=== PATIENT | female | born 1985 | race Caucasian/White ===

== ENCOUNTER 2016-09-26 13:12 | Observation (INO) | payer BC ==
[2016-09-26] MEDS ORDERED: Diltiazem IV* 5 MG/ML 5 ML VIAL (for loading dose/IV Push) (25 MG) IV PUSH ONE (13:34)
[2016-09-26] MEDS ORDERED: NS 0.9% 1000 ML* 1,000 ML IV ONE (13:34)
[2016-09-26 13:48] LABS: Hematocrit 41 % (35-47); Mean Corpuscular HGB Conc 34 g/dl (31-36); Mean Corpuscular Hemoglobin 30 pg (27-31); Mean Corpuscular Volume 89 fL (80-97); Mean Platelet Volume 8 um3 (7.4-10.4); Red Blood Count 4.63 10^6/ul (4.0-5.4); Red Cell Distribution Width 14 % (10.5-15); White Blood Count 7.9 10^3/ul (3.5-10.8)
--- NOTE | 2016-09-26 13:53 | RAD ---
HISTORY: Palpitation COMPARISONS: None VIEWS:1: Single frontal portable view of the chest at 1:43 PM FINDINGS: LINES AND TUBES: None. CARDIOMEDIASTINAL SILHOUETTE: The cardiomediastinal silhouette is normal for portable technique. PLEURA: The costophrenic angles are sharp. No pleural abnormalities are noted. LUNG PARENCHYMA: The lungs are clear. ABDOMEN: The upper abdomen is clear. There is no subphrenic gas. BONES AND SOFT TISSUES: No bone or soft tissue abnormalities are noted. IMPRESSION: NO ACTIVE CARDIOPULMONARY DISEASE.
[2016-09-26 14:02] LABS: Albumin 4.5 g/dL (3.2-5.2); BUN/Creatinine Ratio 12.7 (8-20); Calcium 9.8 mg/dL (8.6-10.3); EGFR African American 75.5 (>60); EGFR Non-African American 58.7 (>60); Potassium 3.5 mmol/L (3.5-5.0); Total Bilirubin 0.8 mg/dL (0.2-1.0); Total Protein 7.5 g/dL (6.4-8.9)
[2016-09-26 14:44] LABS: TSH (Thyroid Stimulating Horm) 1.34 mcIU/mL (0.34-5.60)
[2016-09-26 15:46] LABS: Urine Bacteria Absent (Absent); Urine Bilirubin Negative (Negative); Urine Glucose Negative (Negative); Urine Nitrite Negative (Negative)
[2016-09-26] MEDS ORDERED: Diltiazem IV* 5 MG/ML 5 ML VIAL (for loading dose/IV Push) (25 MG) IV SLOW PU ONE (15:49)
[2016-09-26] MEDS ORDERED: Diltiazem TAB* 60 MG PO SCH (15:50)
[2016-09-26] MEDS ORDERED: Potassium Chloride LIQUID* 20 MEQ PACKET PO ONE (15:53)
[2016-09-26] MEDS ORDERED: Acetaminophen TAB* 325 MG PO PRN (15:53)
[2016-09-26] MEDS ORDERED: Ondansetron INJ* 2 MG/ML VIAL IV PRN (15:53)
[2016-09-26] MEDS ORDERED: Diltiazem DRIP* 100 MG/100 ML ADDV.BAG IVPB ONE (15:59)
[2016-09-26] MEDS ORDERED: NS 0.9% 1000 ML* 1,000 ML IV SCH (16:00)
[2016-09-26] MEDS: Rivaroxaban TAB(*) 20 MG TAB PO SCH (16:26)
--- NOTE | 2016-09-26 16:27 | ED ---
Sharad Gasca Billy, scribed for Jose A Moeller MD on 09/26/16 at 1330 . Palpitations / Dysrhythmia - HPI Summary HPI Summary: Patient is a 30 year-old female coming to [facility] for evaluation of intermittent palpitations since this morning at 0500. She has a history of palpitations and had been seen by cardiology in the past but was never formally diagnosed with any disorder. She describes irregular fluttering which she can feel in her throat, as well as dizziness and shortness of breath. Nothing makes her symptoms better or worse. Denies control pill use. Denies calf pain or swelling. She takes magnesium for her migraine headaches. - History of Current Complaint Chief Complaint: EDDysrhythmPalp Time Seen by Provider: 09/26/16 13:22 Hx Obtained From: Patient Onset/Duration: Gradual Onset Timing: Intermittent Episodes Lasting: Severity Initially: Moderate Severity Currently: Moderate Character: Irregular, Fluttering Aggravating: Nothing Alleviating: Nothing Associated Signs & Symptoms: Dizzy, Shortness of Breath - Allergy/Home Medications Allergies/Adverse Reactions: Allergies Allergy/AdvReac Type Severity Reaction Status Date / Time No Known Allergies Allergy Verified 09/26/16 13:16 PMH/Surg Hx/FS Hx/Imm Hx Endocrine/Hematology History: Denies: Hx Diabetes Cardiovascular History: Denies: Hx Hypertension, Hx Pacemaker/ICD Respiratory History: Denies: Hx Asthma History: Denies: Hx Renal Disease Sensory History: Denies: Hx Hearing Aid Neurological History: Reports: Hx Headaches, Hx Migraine Psychiatric History: Reports: Hx Anxiety, Hx Panic Disorder - Surgical History Surgery Procedure, Year, and Place: X2;. TUBAL LIGATION;. LEFT LEG VEIN CLOSURE; Infectious Disease History: No Infectious Disease History: Denies: Traveled Outside the [place] in Last 30 Days - Family History Known Family History: Positive: Hypertension, Diabetes - Social History Alcohol Use: Daily Alcohol Amount: wine almost daily Substance Use Type: Reports: None Smoking Status (MU): Former Smoker Review of Systems Positive: Palpitations Positive: Shortness Of Breath Negative: Myalgia, Edema Neurological: Other - dizziness All Other Systems Reviewed And Are Negative: Yes Physical Exam - Summary Physical Exam Summary: VITAL SIGNS: Reviewed. GENERAL: Patient is a well-developed, overweight, and nourished female who is lying comfortable in the stretcher. Patient is not in any acute respiratory distress. HEAD AND FACE: No signs of trauma. No ecchymosis, hematomas or skull depressions. No sinus tenderness. EYES: PERRLA, EOMI x 2, No injected conjunctiva, no nystagmus. EARS: Hearing grossly intact. Ear canals and tympanic membranes are within normal limits. MOUTH: Oropharynx within normal limits. NECK: Supple, trachea is midline, no adenopathy, no JVD, no carotid bruit, no c- spine tenderness, neck with full ROM. CHEST: Symmetric, no tenderness at palpation LUNGS: Clear to auscultation bilaterally. No wheezing or crackles. CVS: Irregular rate and rhythm, S1 and S2 present, no murmurs or gallops appreciated. ABDOMEN: Soft, non-tender. No signs of distention. No rebound no guarding, and no masses palpated. Bowel sounds are normal. EXTREMITIES: FROM in all major joints, no edema, no cyanosis or clubbing. NEURO: Alert and oriented x 3. No acute neurological deficits. Speech is normal and follows commands. SKIN: Dry and warm Triage Information Reviewed: Yes Vital Signs On Initial Exam: Initial Vitals Temp Pulse Resp BP Pulse Ox 97.8 F 157 18 134/81 100 09/26/16 13:14 09/26/16 13:14 09/26/16 13:14 09/26/16 13:14 09/26/16 13:14 Vital Signs Reviewed: Yes Diagnostics - Vital Signs Vital Signs Temp Pulse Resp BP Pulse Ox 09/26/16 13:14 97.8 F 157 18 134/81 100 - Laboratory Lab Results: Lab Results 09/26/16 09/26/16 09/26/16 Range/Units 13:37 13:37 13:37 WBC 7.9 (3.5-10.8) 10^3/ul RBC 4.63 (4.0-5.4) 10^6/ul Hgb 14.0 (12.0-16.0) g/dl Hct 41 (35-47) % MCV 89 (80-97) fL MCH 30 (27-31) pg MCHC 34 (31-36) g/dl RDW 14 (10.5-15) % Plt Count 217 (150-450) 10^3/ul MPV 8 (7.4-10.4) um3 Neut % (Auto) 58.0 (38-83) % Lymph % (Auto) 33.7 (25-47) % [place] % (Auto) 6.6 (1-9) % Eos % (Auto) 0.9 (0-6) % Baso % (Auto) 0.8 (0-2) % Absolute Neuts (auto) 4.6 (1.5-7.7) 10^3/ul Absolute Lymphs (auto) 2.7 (1.0-4.8) 10^3/ul Absolute Monos (auto) 0.5 (0-0.8) 10^3/ul Absolute Eos (auto) 0.1 (0-0.6) 10^3/ul Absolute Basos (auto) 0.1 (0-0.2) 10^3/ul Absolute Nucleated RBC 0 10^3/ul Nucleated RBC % 0 INR (Anticoag Therapy) (0.89-1.11) APTT (26.0-36.3) seconds D-Dimer, Quantitative (Less Than 230) ng/mL Sodium 139 (133-145) mmol/L Potassium 3.5 (3.5-5.0) mmol/L Chloride 107 (101-111) mmol/L Carbon Dioxide 24 (22-32) mmol/L Anion Gap 8 (2-11) mmol/L BUN 14 (6-24) mg/dL Creatinine 1.10 H (0.51-0.95) mg/dL Est GFR ( Amer) 75.5 (>60) Est GFR (Non-Af Amer) 58.7 (>60) BUN/Creatinine Ratio 12.7 (8-20) Glucose 89 (70-100) mg/dL Lactic Acid 0.7 (0.5-2.0) mmol/L Calcium 9.8 (8.6-10.3) mg/dL Magnesium 2.0 (1.9-2.7) mg/dL Total Bilirubin 0.80 (0.2-1.0) mg/dL AST 20 (13-39) U/L ALT 17 (7-52) U/L Alkaline Phosphatase 31 L (34-104) U/L Total Creatine Kinase 161 (10-223) U/L Troponin I 0.00 (<0.04) ng/mL B-Natriuretic Peptide ( - 100) pg/mL Total Protein 7.5 (6.4-8.9) g/dL Albumin 4.5 (3.2-5.2) g/dL Globulin 3.0 (2-4) g/dL Albumin/Globulin Ratio 1.5 (1-3) TSH 1.34 (0.34-5.60) mcIU/mL Urine Color Urine Appearance Urine pH (5-9) Ur Specific [place] (1.010-1.030) Urine Protein (Negative) Urine Ketones (Negative) Urine Blood (Negative) Urine Nitrate (Negative) Urine Bilirubin (Negative) Urine Urobilinogen (Negative) Ur Leukocyte Esterase (Negative) Urine WBC (Auto) (Absent) Urine RBC (Auto) (Absent) Ur Squamous Epith Cells (Absent) Urine Bacteria (Absent) Urine Glucose (Negative) 09/26/16 09/26/16 09/26/16 Range/Units 13:37 13:37 15:25 WBC (3.5-10.8) 10^3/ul RBC (4.0-5.4) 10^6/ul Hgb (12.0-16.0) g/dl Hct (35-47) % MCV (80-97) fL MCH (27-31) pg MCHC (31-36) g/dl RDW (10.5-15) % Plt Count (150-450) 10^3/ul MPV (7.4-10.4) um3 Neut % (Auto) (38-83) % Lymph % (Auto) (25-47) % [place] % (Auto) (1-9) % Eos % (Auto) (0-6) % Baso % (Auto) (0-2) % Absolute Neuts (auto) (1.5-7.7) 10^3/ul Absolute Lymphs (auto) (1.0-4.8) 10^3/ul Absolute Monos (auto) (0-0.8) 10^3/ul Absolute Eos (auto) (0-0.6) 10^3/ul Absolute Basos (auto) (0-0.2) 10^3/ul Absolute Nucleated RBC 10^3/ul Nucleated RBC % INR (Anticoag Therapy) 0.90 (0.89-1.11) APTT 28.4 (26.0-36.3) seconds D-Dimer, Quantitative < 200 (Less Than 230) ng/mL Sodium (133-145) mmol/L Potassium (3.5-5.0) mmol/L Chloride (101-111) mmol/L Carbon Dioxide (22-32) mmol/L Anion Gap (2-11) mmol/L BUN (6-24) mg/dL Creatinine (0.51-0.95) mg/dL Est GFR ( Amer) (>60) Est GFR (Non-Af Amer) (>60) BUN/Creatinine Ratio (8-20) Glucose (70-100) mg/dL Lactic Acid (0.5-2.0) mmol/L Calcium (8.6-10.3) mg/dL Magnesium (1.9-2.7) mg/dL Total Bilirubin (0.2-1.0) mg/dL AST (13-39) U/L ALT (7-52) U/L Alkaline Phosphatase (34-104) U/L Total Creatine Kinase (10-223) U/L Troponin I (<0.04) ng/mL B-Natriuretic Peptide 133 H ( - 100) pg/mL Total Protein (6.4-8.9) g/dL Albumin (3.2-5.2) g/dL Globulin (2-4) g/dL Albumin/Globulin Ratio (1-3) TSH (0.34-5.60) mcIU/mL Urine Color Colorless Urine Appearance Clear Urine pH 7.0 (5-9) Ur Specific [place] 1.002 L (1.010-1.030) Urine Protein Negative (Negative) Urine Ketones Trace H (Negative) Urine Blood 2+ H (Negative) Urine Nitrate Negative (Negative) Urine Bilirubin Negative (Negative) Urine Urobilinogen Negative (Negative) Ur Leukocyte Esterase Negative (Negative) Urine WBC (Auto) Absent (Absent) Urine RBC (Auto) Trace(0-2/hpf) (Absent) Ur Squamous Epith Cells Present H (Absent) Urine Bacteria Absent (Absent) Urine Glucose Negative (Negative) Result Diagrams: 09/26/16 13:37 09/26/16 13:37 Lab Statement: Any lab studies that have been ordered have been reviewed, and results considered in the medical decision making process. - Radiology CXR Xray Interpretation: No Acute Changes Radiology Interpretation Completed By: Radiologist - EKG 1324 EKG Interpretation: afib 162 bpm with RVR Course/Dx - Course Assessment/Plan: Patient is a 30 year-old female coming to [facility] for evaluation of intermittent palpitations since this morning at 0500. She has a history of palpitations and had been seen by cardiology in the past but was never formally diagnosed with any disorder. She describes irregular fluttering which she can feel in her throat, as well as dizziness and shortness of breath. Nothing makes her symptoms better or worse. Denies control pill use. Denies calf pain or swelling. She takes magnesium for her migraine headaches. Test results WNL except for creatinine of 1.10 and BNP of 133. In the ED course, the patient was given IV fluids, Cardizem bolus for the atrial fibrillation with RVR. After these medications, the heart rate is better controlled and fluctuates between 90 bpm and 110 bpm. I discussed the case with Dr. Lambert who accepted the patient for admission. The patient is hemodynamically stable, A&Ox3. - Diagnoses Provider Diagnoses: Atrial fibrillation with RVR - Physician Notifications Discussed Care Of Patient With: Dr. Lambert (hospitalist) at 1520: accepts admission. Discharge - Discharge Plan Condition: Stable Disposition: ADMITTED TO [facility] The documentation as recorded by the Sharad westfall Billy accurately reflects the service I personally performed and the decisions made by me, Jose A Moeller MD.
--- NOTE | 2016-09-26 17:17 | HP ---
HISTORY AND PHYSICAL: DATE OF ADMISSION: 09/26/16 PRIMARY CARE PROVIDER: Loni Logan NP. ATTENDING PHYSICIAN WHILE IN THE HOSPITAL: Dr. Jorge Lambert* (report dictated by Joe Bravo NP). CONSULTING SECURITY RESEARCHER: Dr. Saez. CHIEF COMPLAINT: Palpitations. HISTORY OF PRESENT ILLNESS: Ms. Gan is a 30-year-old female patient. She carries really a history of migraines. She comes in to the ER today stating that she woke up at 5 this morning. She was feeling palpitations. She did not feel palpitations yesterday that she can recall. She says she went to bed about 9-9:30 last night, woke up around 5 in the morning, had palpitations. She tried Valsalva maneuver. She has had palpitations in the past. She actually had follow up with her box attacher, Dr. Julio Andre, nothing was ever found. Unfortunately today, she was at [employer] working and she was still having palpitations and fluttering in her chest. She got clammy in her hands. She felt nauseous. She just was not feeling good. So, she went to her co- worker. They checked her heart rate. It was noted on the pulse oximetry that her heart rate was very erratic. She was having palpitations and she was feeling short of breath. She took 2 baby aspirin this afternoon. They just were not going away. This had never occurred or happened before previously. So , she decided to come in to the ER. She came in, was evaluated, found to be in AFib with RVR, and we were asked to evaluate for admission. She denies any recent changes in her medications. She does state that she is a 2-cup-a-day coffee drinker. She does drink wine. She denied having any changes in medication. There has been no calf pain, leg pain, or tenderness or any of that nature and she did admit to having shortness of breath with the palpitations. She came in, was evaluated. Because of the AFib with RVR, we were asked to evaluate for admission. PAST MEDICAL HISTORY: Significant for migraines. PAST SURGICAL HISTORY: 1. She has had tubal ligation. 2. . HOME MEDICATIONS: According to her include: 1. Vitamin B12 one tablet daily. 2. Magnesium 1 tablet daily. 3. Probiotic 1 tablet daily. ALLERGIES TO MEDICATIONS: Include no known drug allergies. FAMILY HISTORY: Mother had a history of hypertension and valvular heart disease. Father had a history of heart disease as well. SOCIAL HISTORY: She is a former smoker. She quit in 2009. Rarely drinks alcohol. 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 Surrogate decision maker is her . REVIEW OF SYSTEMS: There is no documented fever. She denied having any significant weight change. There was no double vision. She denies having any ear discharge. There was no rhinorrhea. No sore throat. No thyroid enlargement. She denied having any chest pain. There was palpitations. There was no shortness of breath. There was no dysuria. No frequency. There was no seizure. No loss of consciousness or pruritus and no skin ulcerations. Review of 14 systems completed, all others negative. PHYSICAL EXAMINATION GENERAL: At this time, Ms. Gan is a 30-year-old female patient. She appear to be well nourished, well developed. She is sitting in the ER stretcher. She does not appear to be in any acute distress. VITAL SIGNS: Blood pressure 138/74, pulse 142, respirations 20, O2 sat 100%, and temperature 97.8. HEENT: Head is atraumatic and normocephalic. Eyes: EOMs are intact. Sclerae anicteric and not pale. Throat: Oral mucosa appears to be moist. No oropharyngeal erythema. NECK: Supple. LUNGS: Clear to auscultation. No wheezes, rales, or rhonchi. HEART: Sounds S1, S2. Irregularly irregular rate. No murmurs, rubs, or gallops. ABDOMEN: Soft, flat, and nontender. Bowel sounds present. EXTREMITIES: Pulses were 2+ throughout. She is able to move all 4 extremities with 5/5 strength. NEUROLOGIC: The patient is awake, alert, and oriented x3. Tongue midline. Foot Doctor are equal. There were no gross focal deficits. SKIN: Grossly intact. LABORATORY DATA AND DIAGNOSTIC STUDIES: Today revealed a WBC of 7.9, RBC of 4.63, hemoglobin 14.0, hematocrit of 41, platelet count 217. The INR was 0.90. PTT of 28.4. D-dimer less than 200. Sodium 139, potassium 3.5, chloride of 107, bicarb 24, BUN 14, creatinine of 1.10, glucose of 89, lactic 0.7, calcium 9.8, mag 2.0. Total bili 0.8, AST 20, ALT 17, alk phos 31, CK 151. Troponin 0. BNP 133. Albumin of 4.5. TSH of 1.34. She did have a chest x-ray obtained today, which revealed no active cardiopulmonary disease. There was an EKG obtained today as well, which showed atrial fibrillation, rate of 162. She did have a PVC, but no ST elevations or T -wave inversions were noted. Old medical records were reviewed. ASSESSMENT AND PLAN: Ms. Gan is a 30-year-old female patient coming in to the ER today with complaints of palpitations, not feeling well, and found to be in atrial fibrillation with rapid ventricular response. She will be admitted under observation status for: 1. Atrial fibrillation with rapid ventricular response: I did touch base with Dr. Saez who will evaluate the patient tomorrow. It seems like that they were within the 48-hour time frame of possible cardioversion. The plan at this point is to go ahead and give her a dose of Xarelto now and then once daily thereafter. I also will give her a repeat bolus of diltiazem, her last bolus was about 1:30 and now she is back into rapid atrial fibrillation. We will give her 15 mg of IV diltiazem and started her on a drip of 5. My plan at this point is to titrate the drip to maximum 20 and titrate for a heart rate around 80 and try to get her potassium up. I am going to give her 40 mEq now and then 20 mg at bedtime and we will check in the morning. She will be n.p.o. after midnight and I will hydrate the patient. 2. Migraines: Tylenol p.r.n. has been made available. 3. Code status: Full code. 4. DVT prophylaxis: She will be placed on Xarelto. TIME SPENT: Time spent on the admission was 60 minutes; greater than half the time was spent [id number] with the patient obtaining my history and physical, other half the time spent going over the plan of care with the patient and implementing plan of care. I did discuss the plan of care with my attending, Dr. Lambert; he is in agreement. JOE BRAVO NP CC: Loni Logan TRAINING ANALYST; Dr. Saez* [id number]/[facility] #: [id number] LELA
[2016-09-26] MEDS ORDERED: Diltiazem DRIP* 100 MG/100 ML ADDV.BAG IVPB SCH (17:25)
[2016-09-26] MEDS ORDERED: Potassium Chlor TAB* 20 MEQ TAB.ER PO SCH (21:00)
[2016-09-27 05:06] LABS: Hematocrit 36 % (35-47); Hemoglobin 12.2 g/dl (12.0-16.0); Mean Corpuscular HGB Conc 34 g/dl (31-36); Mean Corpuscular Hemoglobin 30 pg (27-31); Mean Corpuscular Volume 89 fL (80-97); Mean Platelet Volume 8 um3 (7.4-10.4); Red Blood Count 4.02 10^6/ul (4.0-5.4); Red Cell Distribution Width 14 % (10.5-15); White Blood Count 6.1 10^3/ul (3.5-10.8)
[2016-09-27 05:19] LABS: BUN/Creatinine Ratio 13.3 (8-20); Calcium 8.4 mg/dL (8.6-10.3); EGFR African American 95.2 (>60); Potassium 4.1 mmol/L (3.5-5.0)
--- NOTE | 2016-09-27 07:18 | PN ---
Subjective Date of Service: 09/27/16 Interval History: CC: palpitations Pt is feeling better since converting to NSR around MN last night. She states that the heaviness in her chest immediately dissipated after converting to NSR. She has no further SOB. She however feels very tired and hungry. Family History: Unchanged from Admission Social History: Unchanged from Admission Past Medical History: Unchanged from Admission Objective Active Medications: Acetaminophen (Tylenol Tab*) 650 mg PO Q4H PRN PRN Reason: FEVER/PAIN Last Admin: 09/26/16 19:40 Dose: 650 mg Ondansetron HCl (Zofran Inj*) 4 mg IV Q6H PRN PRN Reason: NAUSEA Rivaroxaban (Xarelto (*)) 20 mg PO DAILY MANOJ Last Admin: 09/26/16 16:26 Dose: 20 mg Vital Signs 09/26/16 09/26/16 09/26/16 16:00 16:08 16:17 Temperature Pulse Rate 61 Respiratory 20 20 18 Rate Blood Pressure 118/69 121/80 117/52 (mmHg) O2 Sat by Pulse 99 Oximetry 09/26/16 09/26/16 09/26/16 16:30 17:00 17:05 Temperature 99.0 F 99.0 F Pulse Rate 99 90 94 Respiratory 15 17 16 Rate Blood Pressure 121/76 108/65 (mmHg) O2 Sat by Pulse 98 98 99 Oximetry 09/26/16 09/26/16 09/26/16 17:30 18:00 18:12 Temperature Pulse Rate 90 87 68 Respiratory 18 18 17 Rate Blood Pressure 114/69 127/73 (mmHg) O2 Sat by Pulse 99 99 97 Oximetry 09/26/16 09/26/16 09/26/16 18:30 19:00 19:14 Temperature Pulse Rate 36 68 93 Respiratory 19 15 17 Rate Blood Pressure 123/73 114/61 104/50 (mmHg) O2 Sat by Pulse 97 98 98 Oximetry 09/26/16 09/26/16 09/26/16 19:16 19:25 19:30 Temperature 99 F Pulse Rate 92 90 Respiratory 19 19 Rate Blood Pressure 107/81 (mmHg) O2 Sat by Pulse 96 98 Oximetry 09/26/16 09/26/16 09/26/16 20:00 20:11 20:13 Temperature Pulse Rate 86 86 80 Respiratory 20 17 17 Rate Blood Pressure 94/58 103/64 (mmHg) O2 Sat by Pulse 97 97 97 Oximetry 09/26/16 09/26/16 09/26/16 20:30 21:00 21:57 Temperature Pulse Rate 86 80 Respiratory 18 17 14 Rate Blood Pressure 108/59 105/61 (mmHg) O2 Sat by Pulse 98 96 Oximetry 09/26/16 09/26/16 09/26/16 22:00 22:15 22:30 Temperature Pulse Rate 81 82 82 Respiratory 16 19 17 Rate Blood Pressure 95/62 89/47 (mmHg) O2 Sat by Pulse 97 96 97 Oximetry 09/26/16 09/26/16 09/26/16 22:34 22:45 22:58 Temperature Pulse Rate 84 76 Respiratory 18 15 20 Rate Blood Pressure 102/60 (mmHg) O2 Sat by Pulse 97 95 Oximetry 09/26/16 09/26/16 09/26/16 23:00 23:01 23:15 Temperature 99.6 F Pulse Rate 74 73 Respiratory 19 13 Rate Blood Pressure 102/54 (mmHg) O2 Sat by Pulse 95 94 Oximetry 09/26/16 09/26/16 09/27/16 23:30 23:45 00:00 Temperature Pulse Rate 65 62 86 Respiratory 8 14 20 Rate Blood Pressure 92/47 (mmHg) O2 Sat by Pulse 95 95 96 Oximetry 09/27/16 09/27/16 09/27/16 00:01 00:13 00:15 Temperature Pulse Rate 87 84 83 Respiratory 24 22 18 Rate Blood Pressure 98/58 (mmHg) O2 Sat by Pulse 96 98 97 Oximetry 09/27/16 09/27/16 09/27/16 00:30 00:45 01:00 Temperature Pulse Rate 87 74 81 Respiratory 23 15 21 Rate Blood Pressure 102/50 99/62 (mmHg) O2 Sat by Pulse 97 96 98 Oximetry 09/27/16 09/27/16 09/27/16 01:15 01:30 01:44 Temperature Pulse Rate 63 62 55 Respiratory 13 13 12 Rate Blood Pressure 103/54 (mmHg) O2 Sat by Pulse 95 95 96 Oximetry 09/27/16 09/27/16 09/27/16 02:00 02:15 02:30 Temperature Pulse Rate 54 56 57 Respiratory 13 16 12 Rate Blood Pressure 102/43 101/46 (mmHg) O2 Sat by Pulse 97 96 96 Oximetry 09/27/16 09/27/1609/27/17 02:45 03:00 03:15 Temperature Pulse Rate 64 76 70 Respiratory 13 14 14 Rate Blood Pressure 94/53 (mmHg) O2 Sat by Pulse 95 96 96 Oximetry 09/27/16 09/27/16 09/27/16 03:30 03:45 04:00 Temperature 98.1 F Pulse Rate 62 62 68 Respiratory 14 13 16 Rate Blood Pressure 94/45 99/45 (mmHg) O2 Sat by Pulse 95 95 97 Oximetry 09/27/16 09/27/16 09/27/16 04:15 04:30 04:42 Temperature Pulse Rate 60 54 Respiratory 13 12 12 Rate Blood Pressure 89/52 (mmHg) O2 Sat by Pulse 96 96 Oximetry 09/27/16 09/27/16 09/27/16 04:45 04:50 05:00 Temperature Pulse Rate 60 58 Respiratory 13 13 20 Rate Blood Pressure 104/55 (mmHg) O2 Sat by Pulse 96 96 Oximetry 09/27/16 09/27/16 09/27/16 05:04 05:15 05:30 Temperature Pulse Rate 73 73 Respiratory 16 16 16 Rate Blood Pressure 108/58 (mmHg) O2 Sat by Pulse 97 97 Oximetry 09/27/16 09/27/16 09/27/16 05:45 06:00 06:15 Temperature Pulse Rate 74 74 79 Respiratory 16 12 19 Rate Blood Pressure 121/71 (mmHg) O2 Sat by Pulse 97 97 98 Oximetry 09/27/16 09/27/16 06:30 06:31 Temperature Pulse Rate 76 Respiratory 13 15 Rate Blood Pressure 120/70 (mmHg) O2 Sat by Pulse 98 Oximetry Oxygen Devices in Use Now: None Appearance: Young obese female sitting up in bed, NAD Eyes: No Scleral Icterus Ears/Nose/Mouth/Throat: Mucous Membranes Moist Respiratory: Symmetrical Chest Expansion and Respiratory Effort, Clear to Auscultation Cardiovascular: NL Sounds; No Murmurs; No JVD, RRR, No Edema Abdominal: NL Sounds; No Tenderness; No Distention Extremities: No Clubbing, Cyanosis Skin: No Rash or Ulcers, No Nodules or Sclerosis Neurological: Alert and Oriented x 3 Result Diagrams: 09/27/16 04:55 09/27/16 04:55 Additional Lab and Data: Lab Results 09/26/16 09/26/16 09/26/16 Range/Units 13:37 13:37 13:37 WBC 7.9 (3.5-10.8) 10^3/ul RBC 4.63 (4.0-5.4) 10^6/ul Hgb 14.0 (12.0-16.0) g/dl Hct 41 (35-47) % MCV 89 (80-97) fL MCH 30 (27-31) pg MCHC 34 (31-36) g/dl RDW 14 (10.5-15) % Plt Count 217 (150-450) 10^3/ul MPV 8 (7.4-10.4) um3 Neut % (Auto) 58.0 (38-83) % Lymph % (Auto) 33.7 (25-47) % Howell % (Auto) 6.6 (1-9) % Eos % (Auto) 0.9 (0-6) % Baso % (Auto) 0.8 (0-2) % Absolute Neuts (auto) 4.6 (1.5-7.7) 10^3/ul Absolute Lymphs (auto) 2.7 (1.0-4.8) 10^3/ul Absolute Monos (auto) 0.5 (0-0.8) 10^3/ul Absolute Eos (auto) 0.1 (0-0.6) 10^3/ul Absolute Basos (auto) 0.1 (0-0.2) 10^3/ul Absolute Nucleated RBC 0 10^3/ul Nucleated RBC % 0 INR (Anticoag Therapy) (0.89-1.11) APTT (26.0-36.3) seconds D-Dimer, Quantitative (Less Than 230) ng/mL Sodium 139 (133-145) mmol/L Potassium 3.5 (3.5-5.0) mmol/L Chloride 107 (101-111) mmol/L Carbon Dioxide 24 (22-32) mmol/L Anion Gap 8 (2-11) mmol/L BUN 14 (6-24) mg/dL Creatinine 1.10 H (0.51-0.95) mg/dL Est GFR ( Amer) 75.5 (>60) Est GFR (Non-Af Amer) 58.7 (>60) BUN/Creatinine Ratio 12.7 (8-20) Glucose 89 (70-100) mg/dL Lactic Acid 0.7 (0.5-2.0) mmol/L Calcium 9.8 (8.6-10.3) mg/dL Magnesium 2.0 (1.9-2.7) mg/dL Total Bilirubin 0.80 (0.2-1.0) mg/dL AST 20 (13-39) U/L ALT 17 (7-52) U/L Alkaline Phosphatase 31 L (34-104) U/L Total Creatine Kinase 161 (10-223) U/L Troponin I 0.00 (<0.04) ng/mL B-Natriuretic Peptide ( - 100) pg/mL Total Protein 7.5 (6.4-8.9) g/dL Albumin 4.5 (3.2-5.2) g/dL Globulin 3.0 (2-4) g/dL Albumin/Globulin Ratio 1.5 (1-3) TSH 1.34 (0.34-5.60) mcIU/mL Urine Color Urine Appearance Urine pH (5-9) Ur Specific Randolph (1.010-1.030) Urine Protein (Negative) Urine Ketones (Negative) Urine Blood (Negative) Urine Nitrate (Negative) Urine Bilirubin (Negative) Urine Urobilinogen (Negative) Ur Leukocyte Esterase (Negative) Urine WBC (Auto) (Absent) Urine RBC (Auto) (Absent) Ur Squamous Epith Cells (Absent) Urine Bacteria (Absent) Urine Glucose (Negative) 09/26/16 09/26/16 09/26/16 Range/Units 13:37 13:37 15:25 WBC (3.5-10.8) 10^3/ul RBC (4.0-5.4) 10^6/ul Hgb (12.0-16.0) g/dl Hct (35-47) % MCV (80-97) fL MCH (27-31) pg MCHC (31-36) g/dl RDW (10.5-15) % Plt Count (150-450) 10^3/ul MPV (7.4-10.4) um3 Neut % (Auto) (38-83) % Lymph % (Auto) (25-47) % Howell % (Auto) (1-9) % Eos % (Auto) (0-6) % Baso % (Auto) (0-2) % Absolute Neuts (auto) (1.5-7.7) 10^3/ul Absolute Lymphs (auto) (1.0-4.8) 10^3/ul Absolute Monos (auto) (0-0.8) 10^3/ul Absolute Eos (auto) (0-0.6) 10^3/ul Absolute Basos (auto) (0-0.2) 10^3/ul Absolute Nucleated RBC 10^3/ul Nucleated RBC % INR (Anticoag Therapy) 0.90 (0.89-1.11) APTT 28.4 (26.0-36.3) seconds D-Dimer, Quantitative < 200 (Less Than 230) ng/mL Sodium (133-145) mmol/L Potassium (3.5-5.0) mmol/L Chloride (101-111) mmol/L Carbon Dioxide (22-32) mmol/L Anion Gap (2-11) mmol/L BUN (6-24) mg/dL Creatinine (0.51-0.95) mg/dL Est GFR ( Amer) (>60) Est GFR (Non-Af Amer) (>60) BUN/Creatinine Ratio (8-20) Glucose (70-100) mg/dL Lactic Acid (0.5-2.0) mmol/L Calcium (8.6-10.3) mg/dL Magnesium (1.9-2.7) mg/dL Total Bilirubin (0.2-1.0) mg/dL AST (13-39) U/L ALT (7-52) U/L Alkaline Phosphatase (34-104) U/L Total Creatine Kinase (10-223) U/L Troponin I (<0.04) ng/mL B-Natriuretic Peptide 133 H ( - 100) pg/mL Total Protein (6.4-8.9) g/dL Albumin (3.2-5.2) g/dL Globulin (2-4) g/dL Albumin/Globulin Ratio (1-3) TSH (0.34-5.60) mcIU/mL Urine Color Colorless Urine Appearance Clear Urine pH 7.0 (5-9) Ur Specific Randolph 1.002 L (1.010-1.030) Urine Protein Negative (Negative) Urine Ketones Trace H (Negative) Urine Blood 2+ H (Negative) Urine Nitrate Negative (Negative) Urine Bilirubin Negative (Negative) Urine Urobilinogen Negative (Negative) Ur Leukocyte Esterase Negative (Negative) Urine WBC (Auto) Absent (Absent) Urine RBC (Auto) Trace(0-2/hpf) (Absent) Ur Squamous Epith Cells Present H (Absent) Urine Bacteria Absent (Absent) Urine Glucose Negative (Negative) Microbiology and Other Data: Microbiology 09/26/16 17:00 Nasal Screen MRSA (PCR)([facility]) - Final Nasal Mrsa Negative Assess/Plan/Problems-Billing Ms Gan is a 30 yo F who has no significant PMHx who presented to the ER with c /o palpitations with associated SOB and chest heaviness and was found to be in rapid afib. - Patient Problems (1) Atrial fibrillation with RVR Current Visit: Yes Status: Acute Code(s): I48.91 - UNSPECIFIED ATRIAL FIBRILLATION SNOMED Code(s): 643984178370961 Comment: The patient converted to NSR around [place] last night on the diltiazem drip. Will stop the drip this AM and monitor for return of afib. Will still plan on getting the echo to evaluate the valve fxn and structure of the heart. Cardiology consult was requested for cardioversion which is not needed now but will see if any further recommendations are made. Will likely stop the xarelto as she converted on her own. Electrolytes are optimized. (2) DVT prophylaxis Current Visit: Yes Status: Acute Code(s): NXJ0009 - SNOMED Code(s): 750704722 Comment: xarelto (3) Full code status Current Visit: Yes Status: Acute Code(s): Z78.9 - OTHER SPECIFIED HEALTH STATUS SNOMED Code(s): 793611093
[2016-09-27] MEDS: Rivaroxaban TAB(*) 20 MG TAB PO SCH (09:00)
[2016-09-27 11:47] VITALS: BP 122/76
--- NOTE | 2016-09-27 13:45 | CONS ---
CC: Lupis Logan NP; Dr. Julio Andre. CARDIOLOGY CONSULTATION: DATE OF CONSULT: 09/27/16 REFERRAL PHYSICIAN: Dr. Kathy Sam; Joe Bravo NP REASON FOR CARDIAC CONSULTATION: Atrial fibrillation. HISTORY OF PRESENT ILLNESS: I was kindly asked to see this patient for cardiology consultation by Mr. Lawrence NP and Dr. Sam of because of new onset of atrial fibrillation. She is accompanied by her by her verbal consent during this cardiac consultation. The patient states that yesterday on 09/26/16 when her alarm went off to wake her up for work at 0500, she noted that she was having palpitations. While she has had palpitations in the past they usually are very brief and resolved after coughing. Her symptoms persisted and later in the day she sought medical attention where she was found to have atrial fibrillation. She was admitted to [facility], began on a Cardizem drip, and her potassium which was 3.5 was repleted. Subsequently, at midnight last night she converted back to sinus rhythm. Currently, she feels better with resolution of prior chest tightness, palpitations and her breathing has improved. The patient has had palpitations for approximately 5 years and has had a cardiac evaluation in the past without dysrhythmic identification. I believe she has normal LV function and left atrial enlargement. However, those records are not currently available. She follows with my partner, Dr. Julio Andre of [facility]. The patient has never fainted. PAST MEDICAL HISTORY: Includes: 1. Migraines. 2. Palpitations. PAST SURGICAL HISTORY: 1. Tubal ligation. 2. section. OUTPATIENT MEDICATIONS: 1. Vitamin B12 once a day. 2. Magnesium once a day. 3. Probiotic once a day. ALLERGIES TO MEDICATIONS: None. She denies shrimp, sea food, or dye allergy. FAMILY HISTORY: Her mother has a history of hypertension and a heart murmur. Her father has a history of diabetes. No family history of stroke. There is breast cancer in her family. Her paternal grandfather and 2 of her paternal uncles have in their 50s from [place]. SOCIAL HISTORY: She has been for 6 years. She does not smoke cigarettes. She drinks 1 to 2 glasses of wine per day. She does not use illicit drugs. She drinks 1 to 2 cups of coffee per day. 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 She does not do regular exercise. She has 2 children ages 2 and 4. 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 REVIEW OF SYSTEMS: The patient denies personal history of stroke, cancer, vomiting blood, coughing up blood, bright red blood per rectum, bleeding stomach ulcers, renal calculi, cholelithiasis, asthma, emphysema. Current asthma she was diagnosed with asthma as a baby. She denies emphysema, pneumonia , tuberculosis, sleep apnea, home oxygen use, diabetes, hypertension, prior [place], congestive heart failure, cardiac surgery, cardiac murmurs, pulmonary emboli. She does have varicose veins. She denies psychiatric illnesses. She denies lupus, psoriasis, seizures, Parkinson's disease, myasthenia gravis, thyroid disorder. She has rare heartburn. She denies peripheral edema. She denies liver disorders, kidney disorders, claudication symptoms. She does get dizzy when she stands quickly. All other review of systems are negative except as described above. PHYSICAL EXAM: Height 5 feet 8 inches, weight 258 pounds, temperature 98.8 degrees Fahrenheit, pulse currently is 91 while in sinus rhythm, blood pressure 122/76, O2 saturation 98%. On general exam, she is a pleasant, overweight lady in no acute distress. HEENT: Shows the cranium is normocephalic and atraumatic. She has moist mucosal membranes. Neck veins are not distended. On limited assessment, there are no carotid bruits. Visible Skin: Warm and perfused. Affect: Appropriate. She appears oriented. No significant kyphoscoliosis on back exam. Lungs are clear to auscultation. No wheezes, no rales. Cardiac Exam: S1, S2. Regular rate. No significant murmurs, rubs or gallops. PMI is nondisplaced. Abdomen: Soft, nondistended, appears benign. Extremities without significant edema. Pulses appeared grossly intact. DIAGNOSTIC STUDIES/LAB DATA: A 12-lead EKG is reviewed from 09/26/16 at 1324, which shows atrial fibrillation at a 162 beats per minute. Telemetry currently clearly demonstrates sinus rhythm. White blood cell count 6.1, hematocrit 36, platelet count 187. INR 0.9. D-dimer less than 200. Sodium 139, potassium 4.1 had been 3.5 on admission, chloride 113, bicarbonate 22, BUN 12, creatinine 0.9, troponin 0. TSH 1.34. BNP 133. Magnesium 2.0. IMPRESSION: Ms. Gan is a 30-year-old woman with a long history of palpitations found to have atrial fibrillation yesterday in the setting of caffeine use, alcohol use, potassium on the lower side and significant mental stress. With Cardizem drip and repletion of potassium, she has converted back to sinus rhythm. Her CHADS2 VASc score is 1. RECOMMENDATIONS: 1. We have recommended the patient begin Toprol XL 25 mg once a day and Xarelto 20 mg once a day until she follows up with her stereotyper in 4 to 6 weeks. I would recommend she be on the oral anticoagulant for 6-12 weeks given atrial stunning post conversion to sinus rhythm from atrial fibrillation and to assure that her PAF is under control and it is reassuring that there is no significant risk of bleeding. This is also the patient and her 's preference ie to take the OAC now after I discussed with them. If she maintains sinus rhythm for 6 -12 weeks could then consider transition from OAC to aspirin 81 mg once a day. 2. We have advised the patient to abstain from caffeine and alcohol use. 3. Recommend potassium supplementation to keep potassium level greater than 4. 4. The patient should follow up with her usual stereotyper Dr. Julio Andre in 4 to 6 weeks following discharge. Many thanks for this kind cardiac consultation opportunity. I have discussed the case with the patient's attending physician Dr. Sam. Additionally, I have discussed the case with the patient and her including review of the pathophysiology of atrial fibrillation with all questions answered and they are in agreement with these recommendations. [id number]/[facility] #: [id number] MTDD
--- NOTE | 2016-09-28 04:44 | DS ---
DISCHARGE SUMMARY: DATE OF ADMISSION: 09/26/16 DATE OF DISCHARGE: 09/27/16 PRIMARY CARE PROVIDER: Loni Logan NP PRINCIPAL DIAGNOSIS: Atrial fibrillation with rapid ventricular response. DISCHARGE MEDICATIONS: 1. Valtrex. 2. DHA omega-3. 3. Zyrtec 10 mg p.o. daily p.r.n. allergy. 4. Xarelto 20 mg p.o. daily (new). 5. Potassium chloride 20 mEq p.o. daily (new). 6. Metoprolol XL 25 mg p.o. daily (new). HOSPITAL COURSE: Ms. Gan is a 30-year-old female who has been under a significant amount of stress recently, who presents to the emergency room with complaints of palpitations. The patient has a history of having palpations in the past, but these persisted and therefore she sought evaluation. The patient was found to be in rapid atrial fibrillation in the emergency room. The patient was admitted and started on a diltiazem drip. At approximately midnight on the night of admission, the patient converted to normal sinus rhythm. The patient was seen in consultation by Dr. Saez on 09/27/16 who recommended that she remain on Xarelto as there was concern for atrial stunning following conversion from AFib to normal sinus rhythm. He recommends that she would be Xarelto for 6 weeks to 3 months. Additionally, he has recommended that she would be started on metoprolol XL 25 mg p.o. daily. The patient's potassium was low normal at 3.5 on presentation to the emergency room and because of this, he recommends that she take potassium chloride 20 mEq p.o. daily. The patient has followed with Dr. Andre for these complaints of palpitations and will need to follow up with him in the next approximately 1 month. The patient at this point is felt to be stable for discharge home. She did not get her echocardiogram during the hospital, but this can be obtained as an outpatient. FOLLOWUP CONCERNS: The patient is being discharged home today, 09/27/16. ACTIVITY LEVEL: As tolerated. DIET: Regular. No caffeine. No alcohol. CONDITION ON DISCHARGE: Stable. TIME SPENT: 35 minutes were spent discharging this patient. CC: Loni Logan NP; Dr. Julio Andre* [id number]/[facility] #: [id number] [facility]
== END 2016-09-27 13:00 | disposition home or self-care (01) ==
LOC: ED 13:12 → ICU 15:50
PROVIDERS: ADMIT Internal Medicine; ATTEND Hospitalist
DX: I48.91 Unspecified atrial fibrillation (principal); R06.02 Shortness of breath; Z87.891 Personal history of nicotine dependence; Z73.3 Stress, not elsewhere classified; G43.909 Migraine, unspecified, not intractable, without status migrainosus
CPT/HCPCS: 36415; 71010; 80048; 80053; 81003; 81015; 82550; 83605; 83735; 83880; 84443; 84484; 85025; 85379; 85610; 85730; 87641; 93005; 96374; 96375; 96376; 99285; A9270-GY; G0378